=== PATIENT | male | born 1995 | race Caucasian/White ===

== ENCOUNTER 2023-10-13 19:37 | Emergency (ER) | payer MEDICAID ==
[~2023-10-13] VITALS: Ht 172.7 cm; Wt 85.0 kg
[2023-10-13 19:46] VITALS: BP 120/79; PULSE 94; RESP 18; TEMP 98.4; O2SAT 98
[2023-10-13 21:06] LABS: BASOPHILS % 0.3 % (0.0-2.0); EOSINOPHILS % 0.1 % (0.0-5.0); HEMATOCRIT. 40.5 % (42.0-52.0); HEMOGLOBIN. 13.7 g/dL (14.0-18.0); LYMPHOCYTES % 14.7 % (20.0-50.0); MEAN CORPUSCULAR HEMOGLOBIN 31.6 pg (28.0-32.0); MEAN CORPUSCULAR HGB CONC 33.9 g/dL (31.0-37.0); MEAN CORPUSCULAR VOLUME 93.2 fL (80.0-94.0); MEAN PLATELET VOLUME 8.4 fl (7.4-10.4); NEUTROPHILS % 77.9 % (40.0-76.0); PLATELET 243 x1000/uL (130-400); RED BLOOD CELL COUNT 4.35 mill/uL (4.7-6.1); RED CELL DISTRIBUTION WIDTH 13.3 % (11.6-14.6); WHITE BLOOD COUNT 9.9 x1000/uL (4.5-11.0)
[2023-10-13 21:13] LABS: CHLORIDE 107 mEq/L (98-107)
[2023-10-13 21:14] LABS: CARBON DIOXIDE 24 mEq/L (21-32); POTASSIUM 3.9 mEq/L (3.5-5.1); SODIUM 142 mEq/L (136-145)
[2023-10-13 21:15] LABS: CALCIUM 10.4 mg/dL (8.7-10.4)
[2023-10-13 21:19] LABS: CREATININE 0.9 mg/dL (0.6-1.3); GLUCOSE 102 mg/dL (70-105)
[2023-10-13 21:20] LABS: UREA NITROGEN BLOOD 10 mg/dL (9-23)
[2023-10-13 21:21] LABS: ALANINE AMINOTRANSFERASE 81 IU/L (10-49); ALBUMIN 4.7 g/dL (3.2-4.8); ASPARTATE AMINOTRANSFERASE 44 IU/L (<34)
[2023-10-13 21:22] LABS: BILIRUBIN TOTAL 0.4 mg/dL (0.1-1.0); PROTEIN TOTAL 7.9 g/dL (6.0-8.3)
[2023-10-13 23:25] LABS: CLARITY URINE CLEAR (CLEAR); COLOR URINE YELLOW (YELLOW); GLUCOSE URINE NEGATIVE (NEGATIVE); KETONES URINE NEGATIVE (NEGATIVE); LEUKOCYTE ESTERASE URINE NEGATIVE (NEGATIVE); NITRITE URINE NEGATIVE (NEGATIVE); OCCULT BLOOD URINE 3+ (NEGATIVE); PH URINE 5.5 (4.5-8.0); PROTEIN URINE TRACE (NEGATIVE); UROBILINOGEN URINE 0.2 E.U./dL (0.2-1.0)
[2023-10-13 23:41] LABS: BACTERIA URINE TRACE; RBC URINE TNTC /hpf (0-2); SQUAMOUS EPITHELIAL CELL URINE 1+ /lpf (RARE/1+); WBC URINE 0-2 /hpf (0-2)
[2023-10-13 23:42] LABS: YEAST URINE 1+
== END 2023-10-13 22:18 | disposition home or self-care (01) ==
LOC: ER 19:50
DX: R10.31 Right lower quadrant pain (principal)
CPT/HCPCS: 36415; 80053; 81003; 85025; 99283